=== PATIENT | male | born 1945 | race Caucasian/White ===

== ENCOUNTER 2021-09-02 04:30 | Emergency (ER) | payer MEDICARE ==
[2021-09-02] MEDS ORDERED: Ondansetron PF 4 MG/2 ML Vial ONE (04:43)
[2021-09-02 05:10] LABS: #Eosinphils 0.1 10x3/uL (0.0-0.5); #Monocytes 0.9 10x3/uL (0.0-1.1); #Neutrophils 10.1 10x3/uL (1.5-8.4); %Basophils 0.3 % (0.0-2.0); %Eosinophils 0.5 % (0.0-6.0); %Lymphocytes 2.4 % (18.0-47.0); %Monocytes 7.6 % (0.0-10.0); %Neutrophils 88.6 % (40.0-75.0); Hemoglobin 14.5 g/dL (13.5-17.5); Mean Corpuscular HGB CONC 31.6 g/dL (32.0-36.0); Mean Corpuscular Hemoglobin 31.9 pg (27.0-33.0); Mean Corpuscular Volume 100.9 fl (81.2-95.1); Mean Platelet Volume 8.7 fl (7.4-10.4); Platelet Count 220 10x3/uL (150-450); RBC Distribution Width 12.4 % (11.5-14.5); Red Blood Cell (RBC) Count 4.55 10x6/uL (4.32-5.72); White Blood Cell (WBC) Count 11.5 10x3/uL (3.5-10.5)
[2021-09-02 05:29] LABS: ALT (SGPT) 16 U/L (8-55); AST (SGOT) 20 U/L (5-34); Albumin 3.9 g/dL (3.4-4.8); Alkaline Phosphatase 52 U/L (40-110); Anion Gap 13 mmol/L (10-20); BUN (Urea Nitrogen) 24 mg/dL (8.4-25.7); Bilirubin, Total 0.8 mg/dL (0.2-1.2); Calc. Creatinine Clearance 0 mL/min (70-130); Calcium 8.8 mg/dL (7.8-10.44); Carbon Dioxide 23 mmol/L (23-31); Chloride 109 mmol/L (98-107); Globulin 2.5 g/dL (2.4-3.5); Glucose 184 mg/dL (83-110); Lipase 19 U/L (8-78); Potassium 4.4 mmol/L (3.5-5.1); Protein, Total 6.4 g/dL (5.8-8.1); Sodium 141 mmol/L (136-145)
== END 2021-09-02 05:55 | disposition home or self-care (01) ==
LOC: CSHERS 04:30
DX: R11.2 Nausea with vomiting, unspecified (principal); R19.7 Diarrhea, unspecified; J44.9 Chronic obstructive pulmonary disease, unspecified; I48.91 Unspecified atrial fibrillation; Z87.891 Personal history of nicotine dependence; Z79.01 Long term (current) use of anticoagulants; Z79.899 Other long term (current) drug therapy
CPT/HCPCS: 80053; 83690; 85025; 96374; J2405